=== PATIENT | male | born 2005 | race Caucasian/White ===

== ENCOUNTER 2023-07-25 07:56 | Emergency (ER) | payer OTHER, SELFPAY ==
[2023-07-25 08:17] VITALS: BP 119/92; PULSE 75; RESP 20; TEMP 36.8; O2SAT 100; BMI 20.4
[2023-07-25 08:37] LABS: Basophils Percent Auto 0.3 % (0.2-2.0); Eosinophils Absolute Auto 0.1 10^3/uL (0.0-0.7); Eosinophils Percent Auto 0.4 % (0.9-7.0); Hematocrit 48.2 % (42.0-54.0); Hemoglobin 17.3 g/dL (14.0-18.0); Immature Granulocytes Abs Auto 0.05 10^3/uL (0.00-0.03); Immature Granulocytes Pct Auto 0.3 % (0.0-0.5); Lymphocytes Absolute Auto 0.4 10^3/uL (1.2-3.8); Lymphocytes Percent Auto 2.5 % (20.5-60.0); Mean Corpuscular HGB Conc 35.9 g/dL (29.9-35.2); Mean Corpuscular Hemoglobin 31.7 pg (25.9-34.0); Mean Corpuscular Volume 88.4 fL (80.0-94.0); Mean Platelet Volume 9.5 fL (9.5-13.5); Monocytes Absolute Auto 0.8 10^3/uL (0.3-0.8); Monocytes Percent Auto 5.3 % (1.7-12.0); Neutrophils Absolute Auto 13.4 10^3/uL (1.4-6.5); Neutrophils Percent Auto 91.2 % (43.0-75.0); Platelet Count 249 10^3/uL (150-450); Red Blood Count 5.45 10^6/uL (4.70-6.10); Red Cell Distribution Width 11.5 % (11.0-15.0); White Blood Count 14.7 10^3/uL (4.0-11.0)
[2023-07-25] MEDS: ONDANSETRON PF 4 MG/2 ML VIAL IV (08:42)
[2023-07-25] MEDS: 0.9 % SODIUM CHLORIDE 1,000 ML 999 ML IV (08:42)
[2023-07-25 08:52] LABS: Alanine Aminotransferase 16 U/L (16-63); Albumin Globulin Ratio 1.6; Albumin Level 4.7 g/dL (3.4-5.0); Alkaline Phosphatase 93 U/L (46-116); Anion Gap 14.9; Aspartate Amino Transferase 20 U/L (15-37); BUN Creatinine Ratio 9.6; Bilirubin Total 1.2 mg/dL (0.2-1.0); Calcium 9.9 mg/dL (8.5-10.1); Chloride 103 mmol/L (98-107); Estimated GFR (African America >60 (>=60); Estimated GFR (Non-African Ame >60 (>=60); Globulin 2.9 g/dL; Glucose 125 mg/dL (74-106); Potassium 3.9 mmol/L (3.5-5.1); Sodium 139 mmol/L (136-145); Total Protein 7.6 g/dL (6.4-8.2)
[2023-07-25] MEDS: DIPHENHYDRAMINE HCL 50 MG/ML (1ML) VIAL 25 MG IV (09:03)
[2023-07-25 09:06] VITALS: BP 112/64; PULSE 64; RESP 20; O2SAT 100
[2023-07-25] MEDS: HYDROMORPHONE HCL 0.5 MG/0.5 ML SYRINGE IV (09:49)
[2023-07-25 09:55] VITALS: BP 141/68; PULSE 86; RESP 16; O2SAT 98
[2023-07-25 11:36] VITALS: BP 122/87; PULSE 76; RESP 18; O2SAT 98
--- NOTE | 2023-07-25 12:03 | ED_ITS ---
HPI - Abdominal Pain General Chief Complaint: Abdominal Pain Stated Complaint: NAUSEA Time Seen by Provider: 07/25/23 08:07 Source: patient and family Mode of arrival: walk-in Limitations: no limitations History of Present Illness HPI narrative: patient was here at onset of vomiting approximately 1 AM last night. Prior to that time he said two days worth of diarrhea. The diarrhea is got little worse since this morning. He's not been on any antibiotics. He was in [place] recently. He initially thought it might have something do with eating at a fast food restaurant earlier in the evening yesterday. No other household members are ill. No one shared his food. The onset of symptoms began about four hours after he had eaten at [employer]. Here in the Emergency Room he's had diffuse abdominal cramping. Vital signs are as noted. Related Data Home Medications Medication Instructions Recorded Confirmed No Known Home Medications 07/25/23 07/25/23 Allergies Allergy/AdvReac Type Severity Reaction Status Date / Time No Known Drug Allergies Allergy Verified 07/25/23 08:17 [facility] Social History Smoking status: Former smoker Exam Narrative Exam Narrative: awake alert uncomfortable. Feels better to curl up in a ball than lying flat. He is afebrile. Examination the abdomen he does not have any surgical incisions. It's flat he does have generalized discomfort with palpation on initial examination. There is no peritoneal findings. Tenderness at [place]Burney's point. After he was medicated I did a complete reexamination of his abdomen is completely benign with no findings or tenderness. No tenderness at [place]'s point. He does have some increase in bowel sounds. Breast examination including chest and extremities was normal. Constitutional Vital Signs, click to edit/add: Last Vital Signs Temp 98.3 F 07/25/23 08:17 Pulse 76 07/25/23 11:36 Resp 18 07/25/23 11:36 BP 122/87 07/25/23 11:36 Pulse Ox 98 07/25/23 11:36 Course Vital Signs Vital signs: Vital Signs Temperature 98.3 F 07/25/23 08:17 Pulse Rate 75 07/25/23 08:17 Respiratory Rate 20 07/25/23 08:17 Blood Pressure 119/92 H 07/25/23 08:17 Pulse Oximetry 100 07/25/23 08:17 Temperature 98.3 F 07/25/23 08:17 Pulse Rate 76 07/25/23 11:36 Respiratory Rate 18 07/25/23 11:36 Blood Pressure 122/87 07/25/23 11:36 Pulse Oximetry 98 07/25/23 11:36 MDM - Abdominal Pain MDM Narrative Medical decision making narrative: patient was given IV fluids anti-emetics as well. His pain was greatly relieved. He felt a thousand times better and had no discomfort when I reexamine him. This could be food borne illness but it's also possible to have gastroenteritis as well. We'll keep him on clear fluids and prescribed Zofran for him as an outpatient. He can return if symptoms would worsen. No solid food was advised for at least twenty-four hours Lab Data Labs: Lab Results 07/25/23 Range/Units 08:24 WBC 14.7 H (4.0-11.0) 10^3/uL RBC 5.45 (4.70-6.10) 10^6/uL Hgb 17.3 (14.0-18.0) g/dL Hct 48.2 (42.0-54.0) % MCV 88.4 (80.0-94.0) fL MCH 31.7 (25.9-34.0) pg MCHC 35.9 H (29.9-35.2) g/dL RDW 11.5 (11.0-15.0) % Plt Count 249 (150-450) 10^3/uL MPV 9.5 (9.5-13.5) fL Neut % (Auto) 91.2 H (43.0-75.0) % Lymph % (Auto) 2.5 L (20.5-60.0) % [place] % (Auto) 5.3 (1.7-12.0) % Eos % (Auto) 0.4 L (0.9-7.0) % Baso % (Auto) 0.3 (0.2-2.0) % Neut # (Auto) 13.4 H (1.4-6.5) 10^3/uL Lymph # (Auto) 0.4 L (1.2-3.8) 10^3/uL [place] # (Auto) 0.8 (0.3-0.8) 10^3/uL Eos # (Auto) 0.1 (0.0-0.7) 10^3/uL Baso # (Auto) 0.0 (0.0-0.1) 10^3/uL Abs Immat Gran (auto) 0.05 H (0.00-0.03) 10^3/uL Imm/Tot Granulo (auto) 0.3 (0.0-0.5) % Sodium 139 (136-145) mmol/L Potassium 3.9 (3.5-5.1) mmol/L Chloride 103 (98-107) mmol/L Carbon Dioxide 25.0 (21.0-32.0) mmol/L Anion Gap 14.9 BUN 11.0 (6.4-19.3) mg/dL Creatinine 1.15 (0.70-1.30) mg/dL Est GFR ( Amer) >60 (>=60) Est GFR (Non-Af Amer) >60 (>=60) BUN/Creatinine Ratio 9.6 Glucose 125 H (74-106) mg/dL Calcium 9.9 (8.5-10.1) mg/dL Total Bilirubin 1.2 H (0.2-1.0) mg/dL AST 20 (15-37) U/L ALT 16 (16-63) U/L Alkaline Phosphatase 93 (46-116) U/L Total Protein 7.6 (6.4-8.2) g/dL Albumin 4.7 (3.4-5.0) g/dL Globulin 2.9 g/dL Albumin/Globulin Ratio 1.6 Lipase 42.0 (16.0-77.0) U/L Discharge Plan Discharge Chief Complaint: Abdominal Pain Clinical Impression: Abdominal pain, vomiting, and diarrhea Patient Disposition: Home, Self-Care Time of Disposition Decision: 12:06 Prescriptions / Home Meds: No Action No Known Home Medications Additional Instructions: clear fluids only twenty-four hours//Zofran Stand Alone Forms: Portal Instructions Referrals: Physician,Non-Staff, MD [Primary Care Provider] - 1 week
--- NOTE | 2023-07-25 12:22 | ED.ABDPAIN1 ---
HPI - Abdominal Pain General Chief Complaint: Abdominal Pain Stated Complaint: NAUSEA Time Seen by Provider: 07/25/23 08:07 Source: patient and family Mode of arrival: walk-in Limitations: no limitations History of Present Illness HPI narrative: this patient was under my care and was feeling better as noted on my previous note. The chart would not open to put an addendum. As he was getting ready to be discharged had a large amount of vomitus yellow bilious colored material. I tried opening the chart as this is not the 2nd Emergency Room visit. We will have to reinitiate an IV given further medications. I will go ahead and do a CT of his abdomen although I still believe this is likely food related or gastroenteritis. In either case she can't go home in this condition. Related Data Home Medications Medication Instructions Recorded Confirmed No Known Home Medications 07/25/23 07/25/23 Allergies Allergy/AdvReac Type Severity Reaction Status Date / Time No Known Drug Allergies Allergy Verified 07/25/23 08:17 PFSH PFSH Social History Smoking status: Former smoker Exam Constitutional Vital Signs, click to edit/add: Last Vital Signs Temp 98.3 F 07/25/23 08:17 Pulse 76 07/25/23 11:36 Resp 18 07/25/23 11:36 BP 122/87 07/25/23 11:36 Pulse Ox 98 07/25/23 11:36 Course Vital Signs Vital signs: Vital Signs Temperature 98.3 F 07/25/23 08:17 Pulse Rate 75 07/25/23 08:17 Respiratory Rate 20 07/25/23 08:17 Blood Pressure 119/92 H 07/25/23 08:17 Pulse Oximetry 100 07/25/23 08:17 Temperature 98.3 F 07/25/23 08:17 Pulse Rate 76 07/25/23 11:36 Respiratory Rate 18 07/25/23 11:36 Blood Pressure 122/87 07/25/23 11:36 Pulse Oximetry 98 07/25/23 11:36 MDM - Abdominal Pain Lab Data Labs: Lab Results 07/25/23 Range/Units 08:24 WBC 14.7 H (4.0-11.0) 10^3/uL RBC 5.45 (4.70-6.10) 10^6/uL Hgb 17.3 (14.0-18.0) g/dL Hct 48.2 (42.0-54.0) % MCV 88.4 (80.0-94.0) fL MCH 31.7 (25.9-34.0) pg MCHC 35.9 H (29.9-35.2) g/dL RDW 11.5 (11.0-15.0) % Plt Count 249 (150-450) 10^3/uL MPV 9.5 (9.5-13.5) fL Neut % (Auto) 91.2 H (43.0-75.0) % Lymph % (Auto) 2.5 L (20.5-60.0) % [place] % (Auto) 5.3 (1.7-12.0) % Eos % (Auto) 0.4 L (0.9-7.0) % Baso % (Auto) 0.3 (0.2-2.0) % Neut # (Auto) 13.4 H (1.4-6.5) 10^3/uL Lymph # (Auto) 0.4 L (1.2-3.8) 10^3/uL [place] # (Auto) 0.8 (0.3-0.8) 10^3/uL Eos # (Auto) 0.1 (0.0-0.7) 10^3/uL Baso # (Auto) 0.0 (0.0-0.1) 10^3/uL Abs Immat Gran (auto) 0.05 H (0.00-0.03) 10^3/uL Imm/Tot Granulo (auto) 0.3 (0.0-0.5) % Sodium 139 (136-145) mmol/L Potassium 3.9 (3.5-5.1) mmol/L Chloride 103 (98-107) mmol/L Carbon Dioxide 25.0 (21.0-32.0) mmol/L Anion Gap 14.9 BUN 11.0 (6.4-19.3) mg/dL Creatinine 1.15 (0.70-1.30) mg/dL Est GFR ( Amer) >60 (>=60) Est GFR (Non-Af Amer) >60 (>=60) BUN/Creatinine Ratio 9.6 Glucose 125 H (74-106) mg/dL Calcium 9.9 (8.5-10.1) mg/dL Total Bilirubin 1.2 H (0.2-1.0) mg/dL AST 20 (15-37) U/L ALT 16 (16-63) U/L Alkaline Phosphatase 93 (46-116) U/L Total Protein 7.6 (6.4-8.2) g/dL Albumin 4.7 (3.4-5.0) g/dL Globulin 2.9 g/dL Albumin/Globulin Ratio 1.6 Lipase 42.0 (16.0-77.0) U/L Discharge Plan Discharge Chief Complaint: Abdominal Pain Clinical Impression: Abdominal pain, vomiting, and diarrhea Patient Disposition: Home, Self-Care Time of Disposition Decision: 12:06 Prescriptions / Home Meds: No Action No Known Home Medications Instructions: Acute Nausea and Vomiting (DC), Abdominal Pain (ED) Additional Instructions: clear fluids only twenty-four hours//Zofran Stand Alone Forms: Portal Instructions Referrals: Physician,Non-Staff, MD [Primary Care Provider] - 1 week
== END 2023-07-25 12:32 | disposition home or self-care (01) ==
PROVIDERS: Emergency Provider Emergency Medicine Emergency Medical Services
DX: R10.9 Unspecified abdominal pain (principal); R19.7 Diarrhea, unspecified; R11.2 Nausea with vomiting, unspecified; Z87.891 Personal history of nicotine dependence
CPT/HCPCS: 36415; 80053; 83690; 85025; 96374; 96375; 99284; J1170

== ENCOUNTER 2023-12-02 02:28 | Emergency (ER) | payer OTHER, SELFPAY ==
[2023-12-02 02:33] VITALS: BP 124/86; PULSE 60; TEMP 36.4; O2SAT 100; BMI 19.8
--- OUTSIDE RECORDS SUMMARY | 2023-12-02 02:36 | XMS_ITS | CCD ---
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 needed for aches pains or fevers. Follow-up with your family physician if no improvement in 2 to 3 days. [facility] Other Summary Purpose Family History No Family History Records Found Advance Directives No Advanced Directives Records Found Additional Source Comments REASON FOR VISIT (unrecogniz ed section and content) HUNTER FOCUS, SORE THROAT, EAR ACHE SEEN AT [facility] ER AND DID NOT GET TREATED (unrecognized sect ion and content) No Status Records Found INFORMATION SOURCE (unrecogn ized section and content) DATE CREATED AUTHOR 05/06/2022 [facility] FOR RECORDS PERTAINING TO PATIENTS WHO ARE OR HAVE BEEN ENROLLED IN A CHEMICAL DEPENDENCY/SUBSTANCEABUSE PROGRAM, SOME INFORMATION MAY BE OMITTED. This clinical summary was aggregated from multiple sources. Caution should be exercised in using it in the provision of clinical care. This summary normalizes information from multiple sources, and as a consequence, information in this document may materially change the coding, format and clinical context of patient data. In addition, data may be omitted in some cases. CLINICAL DECISIONS SHOULD BE BASED ON THE PRIMARY CLINICAL RECORDS. [facility]. provides no warranty or guarantee of the accuracy or completeness of information in this document.
[2023-12-02 02:45] LABS: Basophils Percent Auto 0.6 % (0.2-2.0); Eosinophils Absolute Auto 0.1 10^3/uL (0.0-0.7); Eosinophils Percent Auto 1.6 % (0.9-7.0); Hemoglobin 15.3 g/dL (14.0-18.0); Immature Granulocytes Abs Auto 0.02 10^3/uL (0.00-0.03); Immature Granulocytes Pct Auto 0.3 % (0.0-0.5); Lymphocytes Absolute Auto 1.7 10^3/uL (1.2-3.8); Lymphocytes Percent Auto 25.5 % (20.5-60.0); Mean Corpuscular HGB Conc 36.4 g/dL (29.9-35.2); Mean Corpuscular Hemoglobin 31.4 pg (25.9-34.0); Mean Corpuscular Volume 86.2 fL (80.0-94.0); Mean Platelet Volume 9.3 fL (9.5-13.5); Monocytes Absolute Auto 0.5 10^3/uL (0.3-0.8); Monocytes Percent Auto 7.2 % (1.7-12.0); Neutrophils Absolute Auto 4.3 10^3/uL (1.4-6.5); Neutrophils Percent Auto 64.8 % (43.0-75.0); Platelet Count 220 10^3/uL (150-450); Red Blood Count 4.87 10^6/uL (4.70-6.10); Red Cell Distribution Width 11.5 % (11.0-15.0); White Blood Count 6.7 10^3/uL (4.0-11.0)
[2023-12-02] MEDS: 0.9 % SODIUM CHLORIDE 1,000 ML 1000 ML IV (02:50)
[2023-12-02] MEDS: ONDANSETRON PF 4 MG/2 ML VIAL IV (02:50)
[2023-12-02 02:54] LABS: Anion Gap 13.4; BUN Creatinine Ratio 10.2; Calcium 8.9 mg/dL (8.5-10.1); Carbon Dioxide 25.5 mmol/L (21.0-32.0); Chloride 105 mmol/L (98-107); Estimated GFR (African America >60 (>=60); Estimated GFR (Non-African Ame >60 (>=60); Glucose 97 mg/dL (74-106); Potassium 3.9 mmol/L (3.5-5.1); Sodium 140 mmol/L (136-145)
[2023-12-02 03:08] LABS: Internal Control Within Normal Limits; Strep A Antigen Screen Negative
--- NOTE | 2023-12-02 03:11 | ED_ITS ---
HPI - Nausea/Vomiting/Diarrhea General Chief complaint: Nausea/Vomiting/Diarrhea Stated complaint: VOMITING Time Seen by Provider: 12/02/23 02:48 Source: patient Mode of arrival: walk-in Limitations: no limitations History of Present Illness HPI Narrative: patient returned home from Trip to [place] yesterday. States he vomited when he came home. This AM he vomited again and then tonight he vomited at work and dec ided to come in. Denies hematemesis . States normal BM. Some abdominal cramping. No fever. Not certain if he may have eaten something in [place] that is making him ill Related Data Home Medications ?Medication ?Instructions ?Recorded ?Confirmed No Known Home Medications 07/25/23 12/02/23 Allergies Allergy/AdvReac Type Severity Reaction Status Date / Time No Known Drug Allergies Allergy Verified 12/02/23 02:38 Review of Systems ROS Status of ROS 10 or more systems reviewed and unremark able except as noted in history and below PFS PFS Social History Smoking status: Former smoker Exam Constitutional Vital Signs, click to edit/add: Last Vital Signs Temp 97.5 F L 12/02/23 02:33 Pulse 60 12/02/23 02:33 Resp 16 12/02/23 02:33 BP 124/86 12/02/23 02:33 Pulse Ox 100 12/02/23 02:33 O2 Del Method Room Air 12/02/23 02:33 Common normals: no apparent distress, average body habitus, oriented x3, no limitations, healthy appearing, alert and well nourished Eye Common normals: EOMs intact bilaterally, conjunctivae normal and no scleral icterus Respiratory Common normals: normal respiratory effort, no retractions, no use of accessory muscles and clear to auscultation bilaterally Cardio Common normals: regular rate, regular rhythm, S1 normal heart sound and S2 normal heart sound Extremity Common normals: normal to inspection Neuro Common normals: oriented x3, CN's II-XII intact bilaterally, moves all extremities and no focal motor deficits Psych Appearance: grossly normal Course Vital Signs Vital signs: Vital Signs Temperature 97.5 F L 12/02/23 02:33 Pulse Rate 60 12/02/23 02:33 Respiratory Rate 16 12/02/23 02:33 Blood Pressure 124/86 12/02/23 02:33 Pulse Oximetry 100 12/02/23 02:33 Oxygen Delivery Method Room Air 12/02/23 02:33 Temperature 97.5 F L 12/02/23 02:33 Pulse Rate 60 12/02/23 02:33 Respiratory Rate 16 12/02/23 02:33 Blood Pressure 124/86 12/02/23 02:33 Pulse Oximetry 100 12/02/23 02:33 Oxygen Delivery Method Room Air 12/02/23 02:33 MDM - Nausea/Vomiting/Diarrhea MDM Narrative Medical decision making narrative: patient presents with recurrent vomiting. labs in ED unremarkable. Patient fee ling better after antiemetics and hydration. Discharged home in improved condition Lab Data Labs: Lab Results 12/02/23 12/02/23 12/02/23 Range/Units 02:39 02:55 04:47 WBC 6.7 (4.0-11.0) 10^3/uL RBC 4.87 (4.70-6.10) 10^6/uL Hgb 15.3 (14.0-18.0) g/dL Hct 42.0 (42.0-54.0) % MCV 86.2 (80.0-94.0) fL MCH 31.4 (25.9-34.0) pg MCHC 36.4 H (29.9-35.2) g/dL RDW 11.5 (11.0-15.0) % Plt Count 220 (150-450) 10^3/uL MPV 9.3 L (9.5-13.5) fL Neut % (Auto) 64.8 (43.0-75.0) % Lymph % (Auto) 25.5 (20.5-60.0) % [place] % (Auto) 7.2 (1.7-12.0) % Eos % (Auto) 1.6 (0.9-7.0) % Baso % (Auto) 0.6 (0.2-2.0) % Neut # (Auto) 4.3 (1.4-6.5) 10^3/uL Lymph # (Auto) 1.7 (1.2-3.8) 10^3/uL [place] # (Auto) 0.5 (0.3-0.8) 10^3/uL Eos # (Auto) 0.1 (0.0-0.7) 10^3/uL Baso # (Auto) 0.0 (0.0-0.1) 10^3/uL Abs Immat Gran (auto) 0.02 (0.00-0.03) 10^3/uL Imm/Tot Granulo (auto) 0.3 (0.0-0.5) % Sodium 140 (136-145) mmol/L Potassium 3.9 (3.5-5.1) mmol/L Chloride 105 (98-107) mmol/L Carbon Dioxide 25.5 (21.0-32.0) mmol/L Anion Gap 13.4 BUN 9.0 (7.0-18.0) mg/dL Creatinine 0.88 (0.70-1.30) mg/dL Est GFR ( Amer) >60 (>=60) Est GFR (Non-Af Amer) >60 (>=60) BUN/Creatinine Ratio 10.2 Glucose 97 (74-106) mg/dL Lactate 0.7 (0.4-2.0) mmol/L Calcium 8.9 (8.5-10.1) mg/dL Total Bilirubin 0.8 (0.2-1.0) mg/dL AST 17 (15-37) U/L ALT 19 (16-63) U/L Alkaline Phosphatase 85 (46-116) U/L Total Protein 6.9 (6.4-8.2) g/dL Albumin 4.4 (3.4-5.0) g/dL Urine Color Lt. yellow (YELLOW) Urine Clarity Clear (CLEAR) Urine pH 6.5 (5.0-9.0) Ur Specific [place] 1.010 (1.005-1.025) Urine Protein Negative (NEG/TRACE) mg/dL Urine Glucose (UA) Negative (NEGATIVE) mg/dL Urine Ketones Negative (NEGATIVE) mg/dL Urine Occult Blood Negative (NEGATIVE) Urine Nitrite Negative (NEGATIVE) Urine Bilirubin Negative (NEGATIVE) Urine Urobilinogen 0.2 (0.2-1.0) EU/dL Ur Leukocyte Esterase Negative (NEGATIVE) Streptococcus Screen Negative Discharge Plan Discharge Stand Alone Forms: Portal Instructions Chief Complaint: Nausea/Vomiting/Diarrhea Clinical Impression: Gastroenteritis Patient Disposition: Home, Self-Care Prescriptions / Home Meds: No Action No Known Home Medications Print Language: Mongolian Instructions: Gastroenteritis (ED) Referrals: Physician,Non-Staff, [Primary Care Provider] - 1 week
[2023-12-02 03:37] LABS: Lactate/Lactic Acid 0.7 mmol/L (0.4-2.0)
[2023-12-02 03:46] LABS: Alanine Aminotransferase 19 U/L (16-63); Albumin Level 4.4 g/dL (3.4-5.0); Alkaline Phosphatase 85 U/L (46-116); Aspartate Amino Transferase 17 U/L (15-37); Bilirubin Total 0.8 mg/dL (0.2-1.0); Total Protein 6.9 g/dL (6.4-8.2)
[2023-12-02] MEDS: 0.9 % SODIUM CHLORIDE 1,000 ML 999 ML IV (03:55)
[2023-12-02 04:55] LABS: Bilirubin Urine NEGATIVE (NEGATIVE); Blood Urine NEGATIVE (NEGATIVE); Clarity Urine CLEAR (CLEAR); Color Urine LT. YELLOW (YELLOW); Glucose Urine UA NEGATIVE (NEGATIVE); Ketones Urine NEGATIVE (NEGATIVE); Leukocyte Esterase Urine NEGATIVE (NEGATIVE); Nitrite Urine NEGATIVE (NEGATIVE); Protein Urine NEGATIVE (NEG/TRACE); Urobilinogen Urine 0.2 EU/dL (0.2-1.0); pH Urine 6.5 (5.0-9.0)
[2023-12-02 04:56] LABS: Urine Microscopic Indicated NO
[2023-12-02 05:20] VITALS: BP 143/84; PULSE 83; O2SAT 99
== END 2023-12-02 05:22 | disposition home or self-care (01) ==
PROVIDERS: Emergency Provider Internal Medicine
DX: K52.9 Noninfective gastroenteritis and colitis, unspecified (principal); Z87.891 Personal history of nicotine dependence
CPT/HCPCS: 36415; 80048; 80053; 81003; 82042; 82247; 83605; 84075; 84155; 84450; 84460; 85025; 87070; 87880; 96361; 96374; 99284

== ENCOUNTER 2024-01-12 22:14 | Emergency (ER) | payer OTHER, SELFPAY ==
--- OUTSIDE RECORDS SUMMARY | 2024-01-12 22:25 | XMS_ITS | CCD ---
Author Organization [facility] Care Team Providers Care Heritage Consultant Name Role Phone Uma Colbert Unavailable REQUEST, DR DELACRUZ LISTED Primary Care Unavaila JANAE Dunne Admitting Unavailable JANAE MORTENSEN Attending Unavailable JANAE MORTENSEN Consulting Unavailable REQUEST, DR DELACRUZ LISTED Primary Care Unavaila ble MARKER, DR VILLANUEVA Admitting Unavailable MARKER, DR VILLANUEVA Attending Unavailable REQUEST, DR DELACRUZ LISTED Primary Care Unavaila ble BRAULIO MONTANEZ Admitting Unavailable BRAULIO MONTANEZ Attending Unavailable ALY MAHMOOD Consulting Unavailable BRAULIO MONTANEZ Consulting Unavailable NENO [facility] Consulting Unavailable Medications Current Medications Medication Drug [...] 04-28-2022 BASO # 0.0 103/ul Normal 0.0-0.1 [facility] Comment on above: Performed By: #### C BC #### [facility] [address] [address] [address] Twyla Carlton Basophils/100 WBC (Bld) 0.6 % Normal 0.2-2.0 [facility] Comment on above: Performed By: #### C BC #### [facility] [address] [address] [address] Twyla Carlton EO # 0.1 103/ul Normal 0.0-0.7 [facility] Comment on above: Performed By: #### C BC #### [facility] [address] [place] [address] Dr. Twyla Carlton Eosinophils/100 WBC (Bld) 1.9 % Normal 0.9-7.0 [facility] Comment on above: Performed By: #### C BC #### [facility] [address] [place] [address] Dr. Twyla Carlton Erythrocyte distribution width (RBC) [Ratio] 11.7 % Normal 11.0-15.0 [facility] Comment on above: Performed By: #### C BC #### [facility] [address] [place] [address] Dr. Twyla Carlton Hematocrit (Bld) [Volume fraction] 44.1 % Normal 42.0-54.0 [facility] Comment on above: Performed By: #### C BC #### [facility] [address] [place] [address] Dr. Twyla Carlton Hemoglobin (Bld) [Mass/Vol] 15.9 g/dL Normal 14.0-18.0 [facility] Comment on above: Performed By: #### C BC #### [facility] [address] [place] [address] Dr. Twyla Carlton IG # 0.01 10e3/ul Normal 0.00-0.03 [facility] Comment on above: Performed By: #### C BC #### [facility] [address] [place] [address] Dr. Twyla Carlton IG % 0.2 % Normal 0.0-0.5 [facility] Comment on above: Performed By: #### C BC #### [facility] [address] [place] [address] Dr. Twyla Carlton LYMPH # 1.4 103/ul Normal 1.2-3.8 [facility] Comment on above: Performed By: #### C BC #### [facility] [address] [place] [address] Dr. Twyla Carlton Lymphocytes/100 WBC (Bld) 26.3 % Normal 20.5-60.0 [facility] Comment on above: Performed By: #### C BC #### [facility] [address] [place] [address] Dr. Twyla Carlton MANUAL DIFF REQ NO Normal [facility] Comment on above: Performed By: #### C BC #### [facility] [address] [place] [address] Dr. Twyla Carlton MCH (RBC) [Entitic mass] 31.5 pg Normal 25.9-34.0 [facility] Comment on above: Performed By: #### C BC #### [facility] [address] [place] [address] Dr. Twyla Carlton MCHC (RBC) [Mass/Vol] 36.1 g/dL Critically high 29.9-35.2 [facility] Comment on above: Performed By: #### C BC #### [facility] [address] [place] [address] Dr. Twyla Carlton MCV (RBC) [Entitic vol] 87.3 fL Normal 80.0-94.0 [facility] Comment on above: Performed By: #### C BC #### [facility] [address] [place] [address] Dr. Twyla Carlton MONO # 0.4 103/ul Normal 0.3-0.8 [facility] Comment on above: Performed By: #### C BC #### [facility] [address] [place] [address] Dr. Twyla Carlton Monocytes/100 WBC (Bld) 7.2 % Normal 1.7-12.0 [facility] Comment on above: Performed By: #### C BC #### [facility] [address] [place] [address] Dr. Twyla Carlton NEUT # 3.3 103/ul Normal 1.4-6.5 [facility] Comment on above: Performed By: #### C BC #### [facility] [address] [place] [address] Dr. Twyla Carlton Neutrophils/100 WBC (Bld) 63.8 % Normal 43.0-75.0 [facility] Comment on above: Performed By: #### C BC #### [facility] [address] [place], [place] [address] Dr. Twyla Carlton Platelet mean volume (Bld) [Entitic vol] 9.2 fL Critically low 9.5-13.5 [facility] Comment on above: Performed By: #### C BC #### [facility] [address] [address] [address] Twyla Carlton PLT 240 103/ul Normal 150-450 [facility] Comment on above: Performed By: #### C BC #### [facility] [address] [address] [address] Twyla Carlton RBC 5.05 106/ul Normal 4.70-6.10 [facility] Comment on above: Performed By: #### C BC #### [facility] [address] [address] [address] Twyla Carlton WBC 5.1 103/ul Normal 4.0-11.0 [facility] Comment on above: Performed By: #### C BC #### [facility] [address] [address] [address] ABD/PELVIS WO CONon [...] NENO MC Date: 2022-04-28 15:15 Normal [facility] CT CHEST W CONon 04-28-2022 CT CHEST [...] by: NENO MC Date: 2022-04-28 14:39 Normal [facility] CT CSPINE WO CONon CT CSPINE [...] by: SAAD MATTHEW Date: 2022-04-28 14:38 Normal [facility] CT HEAD WO CONon 04-28-2022 CT [...] SAAD MATTHEW Date: 2022-04-28 14:34 Normal [facility] DRUG SCREEN RAPID (URINE)on 04-28-2022 AMP Negative Normal NEGATIVE [facility] Comment on above: Performed By: #### Ky JENSEN, ERUR ####[facility] [address] [address]Dr. Twyla Carlton BAR Negative Normal NEGATIVE [facility] Comment on above: Performed By: #### Ky JENSEN, ERUR ####[facility] [address] [id number]. Twyla Carlton BUP Negative Normal NEGATIVE [facility] Comment on above: Performed By: #### Ky JENSEN ERUR ####[facility] [address] [address]Dr. Twyla Carlton BZO Negative Normal NEGATIVE [facility] Comment on above: Performed By: #### Ky JENSEN ERUR ####[facility] [address] [address]Dr. Twyal Carlton JENNY Negative Normal NEGATIVE [facility] Comment on above: Performed By: #### Ky JENSEN, ERUR ####[facility] [address] [address]Dr. Twyla Carlton CUT-OFFS SEE BELOW Normal [facility] Comment on above: Result Comment: AMP (Amphetamine): 500ng/mL, BAR (Barbituates): 200 ng/mL, BZO (Benzodiazepines): 150 ng/mL, BUP (Buprenorphine): 10 ng/mL, JENNY (Cocaine): 150 ng/mL, mAMP (Methamphetamine): 500 ng/mL, MTD (Methadone): 200 ng/mL, OPI (Opiates): 100 ng/mL, OXY (Oxycodone): 100 ng/mL, PCP (Phencyclidine): 25 ng/mL, PPX (Propoxyphene): 300 ng/mL, THC (Cannabinoids): 50 ng/mL, TCA (Trycyclic Antidepressants): 300 ng/mL Performed By: #### Ky JENSEN, ERUR ####[facility] [address] [place], [place] [address]Dr. [facility] DRUG CUT HEADER DRUG CLASS TEST SYSTEM CUT-OFF CONCENTRATIONS ARE FOLLOWS: Normal [facility] Comment on above: Performed By: #### Ky JENSEN, ERUR ####[facility] [address] [place], [place] [address]Dr. Twyla Carlton mAMP Negative Normal NEGATIVE [facility] Comment on above: Performed By: #### Ky JENSEN, ERUR ####[facility] [address] [place], [place] [address]Dr. Twyla Carlton MTD Negative Normal NEGATIVE [facility] Comment on above: Performed By: #### Ky JENSEN, ERUR ####[facility] [address] [place], [place] [address]Dr. Twyla [facility] OPI Negative Normal NEGATIVE [facility] Comment on above: Performed By: #### Ky JENSEN, ERUR ####[facility] [address] [place], [place] [address]Dr. Twyla [facility] OXY Negative Normal NEGATIVE [facility] Comment on above: Performed By: #### Ky JENSEN, ERUR ####[facility] [address] [place], [place] [address]Dr. Twyla [facility] PCP Negative Normal NEGATIVE [facility] Comment on above: Performed By: #### Ky JENSEN, ERUR ####[facility] [address] [address]Dr. Twyla Carlton PPX Negative Normal NEGATIVE [facility] Comment on above: Performed By: #### Ky JENSEN, ERUR ####[facility] [address] [address]Dr. Twyla Carlton TCA Negative Normal NEGATIVE [facility] Comment on above: Performed By: #### Ky JENSEN, ERUR ####[facility] [address] [address]Dr. Twyla Carlton THC Positive Abnormal NEGATIVE [facility] Comment on above: Performed By: #### Ky JENSEN, ERUR ####[facility] [address] [address]Dr. Twyla Carlton ER URINE PROFILEon 2 Bilirubin Ql (U) Negative Normal NEGATIVE The [facility] Comment on above: Performed By: #### Ky JENSEN, ERUR #### [facility] [address] [address] [address] Twyla Carlton Clarity (U) CLEAR Normal CLEAR [facility] Comment on above: Performed By: #### Ky JENSEN, ERUR #### [facility] [address] [address] [address] Twyla Carlton Color (U) LT. YELLOW Normal YELLOW [facility] Comment on above: Performed By: #### Ky JENSEN ERUR #### [facility] [address] [address] [address] Twyla ABRAHAMKy A micrscopic examination will be performed if indicated. Normal [facility] Comment on above: Performed By: #### Ky JENSEN, ERUR #### [facility] [address] [address] [address] Twyla Carlton Glucose Ql (U) Negative Normal NEGATIVE The [facility] Comment on above: Performed By: #### Ky JENSEN, ERUR #### [facility] [address] [address] [address] Twyla Carlton Hemoglobin Ql (U) Negative Normal NEGATIVE [facility] Comment on above: Performed By: #### D CAMILA, ERUR #### [facility] [address] [address] [address] Twyla Carlton Ketones Ql (U) Negative Normal NEGATIVE The [facility] Comment on above: Performed By: #### D CAMILA, ERUR #### [facility] [address] [place] [address] Dr. Twyla Carlton LEUKOCYTES Negative Normal NEGATIVE [facility] Comment on above: Performed By: #### D CAMILA, ERUR #### [facility] [address] [address] [address] Twyla Carlton Nitrite Ql (U) Negative Normal NEGATIVE The [facility] Comment on above: Performed By: #### D CAMILA, ERUR #### [facility] [address] [place] [address] Dr. Twyla Carlton pH (U) 7.0 [pH] Normal 5-9 [facility] Comment on above: Performed By: #### D CAMILA, ERUR #### [facility] [address] [place] [address] Dr. Twyla Carlton SPEC GRAVITY 1.010 Normal 1.005-<=1.025 [facility] Comment on above: Performed By: #### D CAMILA, ERUR #### [facility] [address] [place] [address] Dr. Twyla Carlton UA PROTEIN Negative Normal NEGATIVE/ TRACE [facility] Comment on above: Performed By: #### D CAMILA, ERUR #### [facility] [address] [place] [address] Dr. Twyla Carlton UR MICRO IND NOT INDICATED Normal [facility] Comment on above: Performed By: #### D CAMILA, ERUR #### [facility] [address] [place] [address] Dr. Twyla Carlton Urobilinogen Qn (U) 0.2 {Gunjan'U}/dL Normal 0.2 - 1.0 [facility] Comment on above: Performed By: #### D CAMILA, ERUR #### [facility] [address] [address] [address] Twyla Carlton ETHANOL (BLD ALC)on 04-28-20 22 ALC NOTE NOTE: 80 mg/dl is the legal limit for a blood alcohol level Normal [facility] Comment on above: Performed By: #### E TH ####[facility] [address] [id number]. Twyla Carlton Ethanol [Mass/Vol] mg/dL Normal [facility] Comment on above: Performed By: #### E TH ####[facility] [address] [address]DrMuriel Carlton PROF 14(COMP METB)on 022 Albumin [Mass/Vol] 4.5 g/dL Normal 3.4-5.0 [facility] Comment on above: Performed By: #### C MP ####[facility] [address] [place], [place] [address]DrMuriel Carlton Albumin/Globulin [Mass ratio] 1.8 {ratio} Normal [facility] Comment on above: Performed By: #### C MP ####[facility] [address] [address]Dr. Twyla Carlton ALP [Catalytic activity/Vol] 87 U/L Normal 46-116 [facility] Comment on above: Performed By: #### C MP ####[facility] [address] [place], [place] [address]Dr. Twyla Carlton ALT [Catalytic activity/Vol] 20 U/L Normal 16-63 [facility] Comment on above: Performed By: #### C MP ####[facility] [address] [address]Dr. Twyla Carlton Anion gap [Moles/Vol] 10.6 mmol/L Normal [facility] Comment on above: Performed By: #### C MP ####[facility] [address] [place], [place] [address]Dr. Twyla Carlton AST [Catalytic activity/Vol] 21 U/L Normal 15-37 [facility] Comment on above: Performed By: #### C MP ####[facility] [address] [address]Dr. Twyla Carlton Bilirubin [Mass/Vol] 0.6 mg/dL Normal 0.2-1.0 [facility] Comment on above: Performed By: #### C MP ####[facility] [address] [address]Dr. Twyla Carlton Calcium [Mass/Vol] 8.9 mg/dL Normal 8.5-10.1 [facility] Comment on above: Performed By: #### C MP ####[facility] [address] [address]Dr. Twyla Carlton Chloride [Moles/Vol] 106 mmol/L Normal 98-107 [facility] Comment on above: Performed By: #### C MP ####[facility] [address] [address]Dr. Twyla Carlton CO2 [Moles/Vol] 28.7 mmol/L Normal 21.0-32.[address] [facility] Comment on above: Performed By: #### C MP ####[facility] [address] [place], [place] [address]Dr. Twyla Carlton Creatinine [Mass/Vol] 0.98 mg/dL Normal 0.70-1.30 [facility] Comment on above: Performed By: #### C MP ####[facility] [address] [address]Dr. Twyla Carlton EGFR-AF AZERBAIJANI >60 Normal >=[address] [facility] Comment on above: Performed By: #### C MP ####[facility] [address] [place], [place] [address]Dr. Twyla Carlton EGFR-NON AF AZERBAIJANI >60 Normal >=60 [facility] Comment on above: Performed By: #### C MP ####[facility] [address] [place], [place] [address]Dr. Twyla Carlton Globulin (S) [Mass/Vol] 2.5 g/dL Normal [facility] Comment on above: Performed By: #### C MP ####[facility] [address] [place], [place] [address]Dr. Twyla Carlton Glucose [Mass/Vol] 100 mg/dL Normal 74-106 [facility] Comment on above: Performed By: #### C MP ####[facility] [address] [address]Dr. Twyla Carlton Potassium [Moles/Vol] 4.3 mmol/L Normal 3.5-5.1 [facility] Comment on above: Performed By: #### C MP ####[facility] [address] [address]Dr. Twyla Carlton Protein [Mass/Vol] 7.0 g/dL Normal 6.4-8.2 [facility] Comment on above: Performed By: #### C MP ####[facility] [address] [address]Dr. Twyla Carlton Sodium [Moles/Vol] 141 mmol/L Normal 136-145 [facility] Comment on above: Performed By: #### C MP ####[facility] [address] [address]Dr. Twyla Carlton Urea nitrogen [Mass/Vol] 6.0 mg/dL Critically low 6.4-19.3 [facility] Comment on above: Performed By: #### C MP ####[facility] [address] [address]Dr. Twyla Carlton Urea nitrogen/Creatinin e [Mass ratio] 6.1 mg/mg Normal [facility] Comment on above: Performed By: #### C MP ####[facility] [address] [address]Dr. Twyla Carlton XR ELBOW LT MIN 3 [...] SAAD MATTHEW Date: 2022-04-28 14:13 Normal [facility] Quick Fluon 03-01-2022 FLUAV Ab CF (S) [Titer] Negative [facility] Other FLUBV Ab CF (S) [Titer] Negative [facility] [facility] SARS-CoV-2 (COVID-19) RNA YOON+probe Ql (Unsp spec) Not detected Normal NOT DETECTED [facility] Comment on above: Result Comment: When diagnostic [...] for this test is supported by the [place] of Health and Human Service's declaration that [...] used). Performed By: #### C VDTB #### [facility] [address] [place] [address] Dr. Twyla Carlton GROUP A STREP CULTUREon S. pyogenes Ag Ql (Unsp spec) Culture Observations: NEGATIVE FOR GROUP A STREPTOCOCCUS. Normal [facility] Comment on above: Performed By: #### G RASTCX, SSCRN #### [facility] [address] [place], [place] [address] Dr. Twyla Carlton STREPT SCREENon 02-27-2022 STREP SCREEN A Negative Normal NEGATIVE The [facility] Comment on above: Performed By: #### G RASTCX, SSCRN #### [facility] [address] [place] [address] [address] [address] Twyla Carlton Vital Signs Date Time Vital Sign Value Performing Clinician Facility 03-01-2022 13:05-0400 Body height 185.42 cm Uma Colbert Other [facility] Other 03-01-2022 13:05-0400 Body mass index (BMI) [Ratio] 19.13 kg/m2 Uma Colbert Other [facility] Other 03-01-2022 13:05-0400 Body temperature 98.4 [degF] Uma Colbert Other [facility] Other 03-01-2022 13:05-0400 Body weight 65.77 kg Uma Colbert Other [facility] Other 03-01-2022 13:05-0400 Respiratory rate 18 /min Uma Colbert Other [facility] Other 03-01-2022 13:05-0400 SaO2% (BldA) [Mass fraction] 99 % Uma Colbert Other [facility] Other Encounters Encounter Date Encounter Type Care Provider Facility Start: 04-28-2022 End: 04-28-[address] NONE LISTED REQUEST Facility: Start: 03-01-2022 End: 03-01-2022 ambulatory Uma Colbert Other [facility] Other Start: 03-01-2022 Office outpatient vi sit 25 minutes Uma Colbert [facility] Start: 03-01-2022 End: 03-01-[address] NONE LISTED REQUEST Facility: Start: 02-27-2022 End: 02-27-[address] NONE LISTED REQUEST Facility: Payers Date Payer Category Payer Unknown [id number] 1961 Unknown [id number] 1961 Unknown [id number] 1961 Unknown [id number] Social History Date Type Detail Facility Sex Assigned At [facility] Other Evaluation note 03-01-2022 Note Date & [...] no improvement in 2 to 3 days. [facility] Other Summary Purpose Family History No Family History Records Found Advance Directives No Advanced Directives Records Found Additional Source Comments REASON FOR VISIT (unrecogniz ed section and content) HUNTER FOCUS, SORE THROAT, EAR ACHE SEEN AT [facility] AND DID NOT GET TREATED (unrecognized sect ion and content) No Status Records Found INFORMATION SOURCE (unrecogn ized section and content) DATE CREATED AUTHOR 05/06/2022 [facility] FOR RECORDS PERTAINING TO PATIENTS [...] BE BASED ON THE PRIMARY CLINICAL RECORDS. [facility] [employer] [facility]. provides no warranty or guarantee of the accuracy or completeness of information in this document.
[2024-01-12 22:54] VITALS: BP 138/75; PULSE 83; TEMP 36.9; O2SAT 100; BMI 18.0
--- NOTE | 2024-01-12 23:12 | PC.NURSE ---
Throat red. Swab obtained
[2024-01-12 23:21] LABS: Internal Control Within Normal Limits; Strep A Antigen Screen Negative
[2024-01-13] MEDS: 0.9 % SODIUM CHLORIDE 1,000 ML 999 ML IV (00:15)
[2024-01-13] MEDS: KETOROLAC TROMETHAMINE 30 MG/ML VIAL 15 MG IVP (00:16)
--- NOTE | 2024-01-13 00:23 | ED.GENADUL1 ---
HPI HPI - General Adult General Chief complaint: Upper Respiratory Infection Stated complaint: Flu Like Symptoms Time Seen by Provider: 01/12/24 22:59 Source: patient and family Source information: patient Mode of arrival: walk-in History of Present Illness HPI narrative: 18-year-old male to the emergency department with chief complaint of malaise, body aches, sore throat. Patient reports that he was at a [employer] music festival in [place] the last few days. He reports that since getting home he has been sore and tired. He was eating and drinking normally. He reports that there was a lot of standing involved. He denies any drug or alcohol use. Normal urination. No dark urine. Related Data Home Medications ?Medication ?Instructions ?Recorded ?Confirmed No Known Home Medications 07/25/23 12/02/23 Allergies Allergy/AdvReac Type Severity Reaction Status Date / Time No Known Drug Allergies Allergy Verified 12/02/23 02:38 Opioid HPI Opioid Management Most Recent Opioid Data: Last Pain Scale 7 01/13/24 00:16 Last ED Pain Assessment 01/12/24 23:11 Last MAR Pain Assessment 01/13/24 00:16 Review of Systems ROS Status of ROS 10 or more systems reviewed and unremarkable except as noted in history and below PFSH PFS Social History Smoking status: Former smoker Exam Narrative Exam Narrative: VITALS: I have reviewed the triage vital signs. GENERAL: Well developed, well appearing adult in no acute distress. NEURO: Alert and oriented. Moves all extremities. Face is symmetric and expressive. EYES: PERRL. No scleral icterus or conjunctival injection. No discharge. HENT: Normocephalic, atraumatic. Hearing is grossly intact. Nares grossly patent and without discharge. Mucous membranes moist. NECK: No JVD. Patient moves neck without restriction. CARDIO: Rhythm regular. Normal rate. No murmur, rub, or gallop. Pulses equal bilaterally in the upper and lower extremity. No lower extremity edema. PULM: Lungs clear to auscultation in all [place]. No wheezes, rales, or rhonchi. No conversational dyspnea. No splinting, stridor, or accessory muscle use. GI/: Abdomen is soft and non-tender. Normoactive bowel sounds. EXTREMITIES: Symmetric muscle bulk. No joint swelling. No clubbing, cyanosis, or deformity. SKIN: Warm and dry. Normal turgor. No rash or lesions appreciated. PSYCH: Mood, affect, and interaction is appropriate to the setting. Constitutional Vital Signs, click to edit/add: Last Vital Signs Temp 98.5 F 01/12/24 22:54 Pulse 83 01/12/24 22:54 Resp 20 01/12/24 22:54 BP 138/75 01/12/24 22:54 Pulse Ox 100 01/12/24 22:54 O2 Del Method Room Air 01/12/24 22:54 Course Vital Signs Vital signs: Vital Signs Temperature 98.5 F 01/12/24 22:54 Pulse Rate 83 01/12/24 22:54 Respiratory Rate 20 01/12/24 22:54 Blood Pressure 138/75 01/12/24 22:54 Pulse Oximetry 100 01/12/24 22:54 Oxygen Delivery Method Room Air 01/12/24 22:54 Temperature 98.5 F 01/12/24 22:54 Pulse Rate 83 01/12/24 22:54 Respiratory Rate 20 01/12/24 22:54 Blood Pressure 138/75 01/12/24 22:54 Pulse Oximetry 100 01/12/24 22:54 Oxygen Delivery Method Room Air 01/12/24 22:54 Medical Decision Making MDM Narrative Medical decision making narrative: Well-appearing 18-year-old male to the emergency department chief complaint of fatigue, malaise, sore throat after attending a festival. Vital stable, the patient is afebrile. His exam is unremarkable. He is well-appearing. Mother was concerned about dehydration. He was swabbed for strep in triage and was negative. Will give some fluids and Toradol for symptoms. Mother agrees with this plan. No indication for further workup or treatment at this time. Lab Data Lab results reviewed: Yes I reviewed the patient's lab results Labs: Lab Results 01/12/24 Range/Units 23:05 Streptococcus Screen Negative Discharge Plan Discharge Stand Alone Forms: Portal Instructions Chief Complaint: Upper Respiratory Infection Clinical Impression: Muscle soreness, Dehydration Patient Disposition: Home, Self-Care Time of Disposition Decision: 00:30 Condition: Good Mode of Transportation: Private Vehicle Prescriptions / Home Meds: No Action No Known Home Medications Print Language: Estonian Instructions: Dehydration (ED) Additional Instructions: Call the office of your primary care doctor to arrange for follow-up within the above-stated timeframe. Follow-up with your primary care doctor about this ED visit. You should review your labs, imaging, and diagnoses from this ED visit with your primary care physician. There may be non-emergent findings that need further evaluation. If you were prescribed medications you should discuss possible side-effects and drug interactions with your pharmacist. Call 911 or go to the nearest Emergency Department if you develop any new or worsening symptoms. Referrals: Physician,Non-Staff, MD [Primary Care Provider] - 1 week
[2024-01-13 01:27] VITALS: BP 107/48; PULSE 97; O2SAT 100
== END 2024-01-13 01:26 | disposition home or self-care (01) ==
PROVIDERS: Emergency Provider Student in an Organized Health Care Education/Training Program
DX: E86.0 Dehydration (principal); M79.10 Myalgia, unspecified site; Z87.891 Personal history of nicotine dependence
CPT/HCPCS: 87070; 87880; 96361; 96374; 99284; J1885